=== PATIENT | female | born 2000 | race African-American/Black ===

== ENCOUNTER 2022-01-30 02:11 | Emergency (ER) | payer BC, SELFPAY ==
--- NOTE | ~2022-01-30 | CT_ITS ---
EXAMINATION: CT abdomen pelvis w con DATE: 01/30/2022 03:24 INDICATION: Right lower quadrant abdominal pain, nausea TECHNIQUE: Computed tomography (CT) of the abdomen and pelvis was performed with 100 CC Omnipaque 350 intravenous contrast. Automated exposure control and iterative reconstruction technique were employe d. Exam dose: 389.79 mGy-cm total exam DLP. COMPARISON: None. FINDINGS: The lung bases are clear. Normal heart size. The liver, spleen, pancreas, and adrenal glands are unremarkable. The gallbladder appears normal. No bile duct or pancreatic duct dilatation. The left kidney appears normal. There is delayed nephrogram on the right and right peripelvic and periureteral fat stranding. There a ppears to be moderate thickening of the urinary bladder wall although bladder is relatively evacuated . No definite urinary tract calculus is evident. Differential diagnosis includes right-sided pyelonep hritis and cystitis or recently passed right urinary tract calculus. Correlation with urinalysis is r ecommended. Normal appendix. No bowel obstruction, bowel wall thickening, pneumatosis or intraperitoneal free air . The uterus, adnexal areas are unremarkable. Included skeletal structures are unremarkable. IMPRESSION: Right pyelogram, right peripelvic and periureteral fat stranding, moderate thickening of the urinary bladder wall; the findings suggest right pyelonephritis, cystitis. Differential diagnosis includes re cently passed urinary tract calculus. Correlation with urinalysis is recommended Normal appendix; no evidence of appendicitis Reviewed, dictated and finalized at [facility]. Reviewed, dictated and finalized at [facility]. IMPRESSION: Right pyelogram, right peripelvic and periureteral fat stranding, moderate thic kening of the urinary bladder wall; the findings suggest right pyelonephritis, cystitis. Differential diagnosis includes recently passed urinary tract calculu s. Correlation with urinalysis is recommended Normal appendix; no evidence of appendicitis
[2022-01-30 02:13] VITALS: BP 155/96; PULSE 94; RESP 16; TEMP 36.4; O2SAT 100
--- NOTE | 2022-01-30 02:35 | ED.ABDPAIN ---
HPI - Abdominal Pain General Chief Complaint: Abdominal Pain Stated Complaint: Right lower abd pain Time Seen by Provider: 01/30/22 02:23 Source: patient History of Present Illness HPI narrative: Patient presents with right-sided abdominal pain. Patient ports her symptoms started around 9:00 yesterday evening and got progressively worse so she came to the ER for evaluation. Scribes a sharp sensation in her right lower quadrant that is constant everything makes it worse no radiation. Reports nausea but denies any vomiting reports urinary urgency but denies any dysuria. Denies any diarrhea or vaginal discharge. Related Data Allergies Allergy/AdvReac Type Severity Reaction Status Date / Time No Known Allergies Allergy Verified 01/30/22 02:41 Review of Systems Review of Systems: CONSTITUTIONAL: Denies fever, chills, or sweats. EYES: Denies visual changes, redness, or discharge. ENT: Denies rhinorrhea, congestion, sore throat, or otalgia. CARDIOVASCULAR: Denies chest pain, palpitations, or edema. RESPIRATORY: Denies cough or dyspnea. GASTROINTESTINAL: Denies vomiting, or diarrhea. GENITOURINARY: Denies dysuria or hematuria. SKIN: Denies rash or itching. MUSCULOSKELETAL: Denies back pain, joint pain, or myalgia. NEUROLOGIC: Denies headache, numbness, dizziness, or weakness. PSYCHIATRIC: Denies anxiety or depression. All systems reviewed & are unremarkable except as noted in HPI and below PMFSH Past Medical History Medical History (Updated 01/30/22 @ 04:26 by Dung Gonzalez MD) Patient denies significant medical history Social History Social History (Updated 01/30/22 @ 02:36 by Dung Gonzalez MD) Living arrangements: with family Exam Narrative: GENERAL: Well-appearing, well-nourished, and in no acute distress. HEAD: Normocephalic, atraumatic. EYES: PERRLA and EOMI. ENT: Nares clear, no rhinorrhea or epistaxis. Mucous membranes moist. NECK: Supple. No masses. No JVD ABDOMEN: Moderate tenderness most noted in the right lower quadrant but is present right upper abdomen and lower left abdomen as well soft, nontender, nondistended, normal active bowel sounds. BACK: Tenderness palpation on the right lower back with CVA tenderness EXTREMITIES: Normal range of motion. No edema. SKIN: Warm, dry, no rash. NEURO: No focal deficits. Alert and oriented x3. PSYCH: Normal mood and affect. Course Reevaluation(s) Reevaluation #1: Patient reports feeling much improved results and plan reviewed with patient. Patient is comfortable outpatient plan. Date: 01/30/22 Time: : Vital Signs Vital signs: Vital Signs Temperature 36.4 C L 01/30/22 02:13 Pulse Rate 94 01/30/22 02:13 Respiratory Rate 16 01/30/22 02:13 Blood Pressure 155/96 H 01/30/22 02:13 Pulse Oximetry 100 01/30/22 02:13 Temperature 36.4 C L 01/30/22 02:13 Pulse Rate 84 01/30/22 04:36 Respiratory Rate 18 01/30/22 04:36 Blood Pressure 127/82 01/30/22 04:36 Pulse Oximetry 98 01/30/22 04:36 MDM - Abdominal Pain MDM Narrative Medical decision making narrative: H&P as above, vss, pt looks clinically well, exam with right-sided abdominal pain and back pain, labs with leukocytosis UA concerning for infection otherwise clinically unremarkable, img concerning for pyelonephritis, additional labs/img considered, symptomatic relief available as needed, on reevaluation pt continues to looks clinically well. Suspect ascending UTI, dns severe sepsis consider dehydration, appendicitis, perforation, bowel obstruction. plan to tx/monitor as op w/ pcm f/u findings/plan discussed with pt, pt agree/comfortable with plan, return precautions given Lab Data Result diagrams: 01/30/22 02:36 01/30/22 02:36 Labs: Lab Results 01/30/22 01/30/22 01/30/22 Range/Units 02:36 02:36 03:59 WBC 15.0 H (4.5-10.0) K/mm3 RBC 4.13 L (4.2-5.4) M/mm3 Hgb 11.1 L (12.0-15.0) g/dL Hct 34.6 L (37.0-47.0) % MCV 83.8
[2022-01-30] MEDS: SODIUM CHLORIDE 0.9% IV 1,000 ML 999 ML IV CONT (02:41)
[2022-01-30] MEDS: ONDANSETRON INJ 4 MG/2 ML VIAL IV PUSH (02:42)
[2022-01-30 02:44] LABS: Basophils Absolute Auto 0.1 K/mm3 (0.0-0.1); Basophils Percent Auto 0.5 % (0.2-1.2); Hematocrit 34.6 % (37.0-47.0); Hemoglobin 11.1 g/dL (12.0-15.0); Immature Granulocyte Absolute 0.05 K/mm3 (0.00-0.031); Immature Granulocyte Percent A 0.3 % (0-0.5); Lymphocytes Absolute Auto 1.01 K/mm3 (0.9-3.2); Lymphocytes Percent Auto 6.8 % (18.3-44.2); Mean Corpuscular HGB Conc 32.1 g/dl (32-36); Mean Corpuscular Hemoglobin 26.9 pg (26-34); Mean Corpuscular Volume 83.8 fl (80-100); Mean Platelet Volume 9.6 fl (7.4-10.4); Monocytes Absolute Auto 0.5 K/mm3 (0.1-0.6); Monocytes Percent Auto 3.6 % (2.6-8.5); Neutrophils Absolute Auto 13.3 K/mm3 (1.3-6.7); Neutrophils Percent Auto 88.8 % (45.5-73.1); Platelet Count Result 311 k/mm3 (150-375); Red Blood Count 4.13 M/mm3 (4.2-5.4); Red Cell Distribution Width 14.6 % (11.5-14.5)
[2022-01-30 02:59] LABS: Alanine Aminotransferase 24 U/L (4-35); Albumin Level 4.5 g/dL (3.7-5.6); Alkaline Phosphatase 81 U/L (45-116); Anion Gap 10 mmol/L (8-16); Aspartate Amino Transferase 34 U/L (14-36); Bilirubin,Total 0.2 mg/dL (0.2-1.3); Blood Urea Nitrogen 13 mg/dL (8-21); Calcium 8.9 mg/dL (8.9-10.7); Carbon Dioxide 22 mmol/L (22-30); Chloride 106 mmol/L (98-107); Estimated CRCL calculation 108 ml/min; Estimated Glomerular Filt Rate > 60; Glucose 104 mg/dL (65-110); Lipase 75 U/L (23-300); Potassium 3.8 mmol/L (3.4-5.0); Sodium 138 mmol/L (134-143)
[2022-01-30 04:02] VITALS: BP 114/73; PULSE 83; RESP 16; O2SAT 98
[2022-01-30] MEDS: KETOROLAC 15 MG/ML VIAL (*BKC) IV PUSH (04:06)
[2022-01-30 04:09] LABS: Add Urine Microscopic? YES; Appearance Urine Clear (Clear); Bacteria Urine Trace /hpf; Bilirubin Urine Negative (Negative); Blood Urine 1+ (Negative); Color Urine Straw (Yellow); Glucose Urine UA Negative (Negative); Ketones Urine 1+ mg/dL (Negative); Leukocyte Esterase Ur 2+ LEU/UL (Negative); Mucus Urine Rare /lpf; Nitrate Urine Negative (Negative); Protein Urine Negative (Negative); Specific Grav Ur > 1.060 (1.001-1.035); Squamous Epithelial Cell Urine Moderate /hpf (Few); Urobilinogen Urine Negative mg/dL (<2.0)
[2022-01-30] MEDS: CEPHALEXIN 500 MG CAPSULE PO (04:35)
[2022-01-30 04:36] VITALS: BP 127/82; PULSE 84; RESP 18; O2SAT 98
== END 2022-01-30 04:37 | disposition home or self-care (01) ==
PROVIDERS: Emergency Provider Emergency Medicine
DX: N39.0 Urinary tract infection, site not specified (principal)
CPT/HCPCS: 36415; 74177; 80053; 81001; 81025; 83690; 85025; 87086; 96361; 96365; 96375; 99284; A9270; J0131; J1885; J2405; J7030; Q9967